=== PATIENT | male | born 1945 | race Caucasian/White ===

== ENCOUNTER 2018-06-12 13:17 | Observation (INO) ==
[2018-06-12] MEDS ORDERED: Sod Chloride 0.9% Inj 1,000 ML IV.SIG ONE (14:27)
[2018-06-12] MEDS ORDERED: Morphine Sulfate Inj 2 MG/ML Vial IV.PUSH ONE (14:27)
--- NOTE | 2018-06-12 14:40 | ED ---
HPI General Chief Complaint: Syncope Stated Complaint: Syncope complaint Time Seen by Provider: 06/12/18 14:09 Source: patient, EMS and RN notes reviewed Mode of arrival: EMS Limitations: no limitations History of Present Illness HPI narrative: 73-year-old male presents to the emergency department via EMS for evaluation of syncope versus seizure. His at bedside states that around [id number] he had 2 episodes where he was sitting in a chair and he became stiff, his eyes rolled back in his head. She states that he did not shake though. He had no fall.. His only history is leg pain. He is complaining of right leg pain at this time, states it has been ongoing for approximately 1-2 months. Current pain is 10/10. He denies any headache. No visual changes. No chest pain or shortness of breath. No abdominal pain. No nausea, vomiting, diarrhea. He states he felt "blurry" before the episode. His states she believes he had a seizure. He is not currently on any prescribed medications. He has been taking Advil [id number] for his leg pain. He denies any trauma to the leg. He states that he feels at his baseline at this time. His at bedside states that the episode lasted a few minutes each time. Moderate severity. MD complaint: Reports loss of consciousness -: minutes(s) Description of event: Reports post-event confusion; Denies tonic-clonic movements, focal shaking, stopped breathing, lost pulse and CPR performed Witnessed: yes - by bystander Context: Reports at rest Injuries sustained associated with event: Reports none Current symptoms: Reports back to baseline History: Denies seizure disorder, previous syncopal episode, seizure disorder, history of CAD, pacemaker and AICD Related Data Home Medications Medication Instructions Recorded Confirmed No Known Home Medications 06/12/18 06/12/18 Allergies Allergy/AdvReac Type Severity Reaction Status Date / Time No Known Allergies Allergy Verified 06/12/18 13:28 Review of Systems ROS: all other systems reviewed are negative [facility] Medical History Medical History Patient denies medical problems (Acute) Surgical History Surgical History No history of previous surgery (Acute) Family History Family History Mother Hypertension Social History Social History Substance History: No History of Abuse Second Hand Smoke Exposure: No Smoking Status: Current every day smoker Tobacco Type: Cigarettes How Often Do You Have a Drink Containing Alcohol: Never Recent Travel in [facility] within the Last 8 Weeks: No Recent Out of Country Travel within the Last 8 Weeks: No Immunization History Tetanus Immunization: Unsure Exam Narrative Exam Narrative: GENERAL: Well-nourished, well-developed male patient, afebrile SKIN: Focused skin assessment warm/dry. No lacerations or abrasions HEAD: Normocephalic. Atraumatic ENT: Mucosa pink and moist. No erythema or exudates. No uvular edema. No uvular , palatal, or tonsillar deviation. Airway patent. Nasal turbinates appear normal without nasal blood, purulent drainage or septal hematoma. Bilateral tympanic membranes clear without erythema or perforation. EYES: No scleral icterus. No injection or drainage. PERRLA. EOM intact NECK: Supple, trachea midline. No JVD or lymphadenopathy. CARDIOVASCULAR: Regular rate and rhythm without murmurs, gallops, or rubs. RESPIRATORY: Breath sounds equal bilaterally. No accessory muscle use. Lung sounds are clear to auscultation GASTROINTESTINAL: Abdomen soft, non-tender, nondistended. MUSCULOSKELETAL: No cyanosis, or edema. Patient reports tenderness of her right posterior calf. No obvious deformity. Bilateral upper and lower extremity strength 5/5. All extremities are neurovascularly intact BACK: Nontender without obvious deformity. No CVA tenderness. NEUROLOGICAL: Awake and alert. Cranial nerves II through XII intact. Motor and sensory grossly within normal limits. Five out of 5 muscle strength in all muscle groups. Normal speech. Finger to nose is normal bilaterally. [id number] is normal bilaterally. Course Initial Documented Vital Signs Temperature 97.6 F 06/12/18 13:28 Pulse Rate 72 06/12/18 13:28 Respiratory Rate 16 06/12/18 13:28 Blood Pressure 112/71 06/12/18 13:28 Pulse Oximetry 100 06/12/18 13:28 Last Documented Vital Signs Temperature 98.2 F 06/13/18 12:00 Pulse Rate 59 L 06/13/18 12:00 Respiratory Rate 16 06/13/18 12:00 Blood Pressure 157/74 H 06/13/18 12:00 Pulse Oximetry 97 06/13/18 12:00 Medical Decision Making MIGUEL Attestation MIGUEL supervised visit: Yes Attestation: No signs of acute airway compromise MDM Narrative Medical decision making narrative: 73-year-old male presents to the emergency department for evaluation of 2 episodes, syncope versus seizure, witnessed by family. His right leg pain that is been ongoing for approximately 1-2 months, otherwise is at his baseline. IV access obtained. EKG shows sinus rhythm, heart rate 63, no acute ST changes. CBC, CMP, magnesium, CK, troponin, PTT, PT/ INR, UA are ordered and pending. Chest x-ray, X-ray of the right tibia/fibula, CT of the head, venous Doppler ultrasound of the right lower extremity is ordered and pending. Patient is given normal saline 1 L IV bolus, morphine 2 mg IV, Zofran 4 mg IV. CBC shows no acute abnormalities. CMP shows no acute abnormality. Magnesium is 2.1. CK is 2.3. Troponin is less than 0.02. PTT is 26.4. PT/INR is 10.5/ 1.0. UA is pending. Chest x-ray shows no acute cardiopulmonary disease. X- ray of the right tibia/fibula shows no acute abnormality; advanced osteoarthritis of the knee. CT of the head shows no acute intracranial abnormality. US shows No DVT; Varicosities in the area of palpable concern. Patient will be admitted for observation for syncope versus seizure. Him and his agree. Medical Screen Exam Complete: Yes Emergency Medical Condition: Yes Differential Diagnosis Differential Diagnosis: Syncope versus seizure versus lectured abnormality versus DVT Medical Records Medical records reviewed: Yes I reviewed the patient's medical records. Lab Data Result diagrams: 06/12/18 15:30 06/12/18 15:30 Lab Results 06/12/18 06/12/18 06/12/18 Range/Units 15:30 15:30 15:30 WBC 9.1 (4.0-11.0) th/mm3 RBC 4.04 L (4.50-5.90) mil/mm3 Hgb 13.9 (13.0-17.0) gm/dL Hct 38.8 L (39.0-51.0) % MCV 96.1 (80.0-100.0) fL MCH 34.4 H (27.0-34.0) pg MCHC 35.8 (32.0-36.0) % RDW 13.9 (11.6-17.2) % Plt Count 192 (150-450) th/mm3 MPV 9.1 (7.0-11.0) fL Neut % (Auto) 83.7 H (16.0-70.0) % Lymph % (Auto) 9.9 (9.0-44.0) % Carroll % (Auto) 5.5 (0.0-8.0) % Eos % (Auto) 0.6 (0.0-4.0) % Baso % (Auto) 0.3 (0.0-2.0) % Neut # (Auto) 7.6 (1.8-7.7) th/mm3 Lymph # (Auto) 0.9 L (1.0-4.8) th/mm3 Carroll # (Auto) 0.5 (0.0-0.9) th/mm3 Eos # (Auto) 0.1 (0.0-0.4) th/mm3 Baso # (Auto) 0.0 (0.0-0.2) th/mm3 WBC Differential . Differential Comment Auto diff final ESR (0-20) mm/hr PT 10.5 (9.8-11.6) sec INR 1.0 Ratio APTT 26.4 (23.4-31.7) sec Sodium 141 (136-145) meq/L Potassium 4.3 (3.5-5.1) meq/L Chloride 109 H (98-107) meq/L Carbon Dioxide 27.7 (21.0-32.0) meq/L Anion Gap 4 L (5-15) meq/L BUN 10 (7-18) mg/dL Creatinine 1.10 (0.60-1.30) mg/dL Estimated GFR 66 L (>89) mL/min Random Glucose 129 H (74-106) mg/dL Calcium 9.1 (8.5-10.1) mg/dL Magnesium 2.1 (1.5-2.5) mg/dL Total Bilirubin 0.2 (0.2-1.0) mg/dL AST 16 (15-37) U/L ALT 30 (12-78) U/L Alkaline Phosphatase 82 (45-117) U/L Total Creatine Kinase 108 (39-308) U/L CK-MB (CK-2) 2.3 (0.5-3.6) ng/mL Troponin I Less than 0.02 L (0.02-0.05) ng/mL C-Reactive Protein (0.00-0.30) mg/dL Total Protein 7.3 (6.4-8.2) g/dL Albumin 3.7 (3.4-5.0) g/dL Triglycerides (42-150) mg/dL Cholesterol (120-200) mg/dL LDL Cholesterol, Calc (0-99) mg/dL HDL Cholesterol (40.0-60.0) mg/dL Cholesterol/HDL Ratio Ratio Vitamin B12 (193-986) pg/mL TSH (0.358-3.740) uIU/mL 06/12/18 06/12/18 06/13/18 Range/Units 15:30 23:03 09:33 WBC (4.0-11.0) th/mm3 RBC (4.50-5.90) mil/mm3 Hgb (13.0-17.0) gm/dL Hct (39.0-51.0) % MCV (80.0-100.0) fL MCH (27.0-34.0) pg MCHC (32.0-36.0) % RDW (11.6-17.2) % Plt Count (150-450) th/mm3 MPV (7.0-11.0) fL Neut % (Auto) (16.0-70.0) % Lymph % (Auto) (9.0-44.0) % Carroll % (Auto) (0.0-8.0) % Eos % (Auto) (0.0-4.0) % Baso % (Auto) (0.0-2.0) % Neut # (Auto) (1.8-7.7) th/mm3 Lymph # (Auto) (1.0-4.8) th/mm3 Carroll # (Auto) (0.0-0.9) th/mm3 Eos # (Auto) (0.0-0.4) th/mm3 Baso # (Auto) (0.0-0.2) th/mm3 WBC Differential Differential Comment ESR 20 (0-20) mm/hr PT (9.8-11.6) sec INR Ratio APTT (23.4-31.7) sec Sodium (136-145) meq/L Potassium (3.5-5.1) meq/L Chloride (98-107) meq/L Carbon Dioxide (21.0-32.0) meq/L Anion Gap (5-15) meq/L BUN (7-18) mg/dL Creatinine (0.60-1.30) mg/dL Estimated GFR (>89) mL/min Random Glucose (74-106) mg/dL Calcium (8.5-10.1) mg/dL Magnesium (1.5-2.5) mg/dL Total Bilirubin (0.2-1.0) mg/dL AST (15-37) U/L ALT (12-78) U/L Alkaline Phosphatase (45-117) U/L Total Creatine Kinase Cancelled (39-308) U/L CK-MB (CK-2) (0.5-3.6) ng/mL Troponin I Less than 0.02 L (0.02-0.05) ng/mL C-Reactive Protein (0.00-0.30) mg/dL Total Protein (6.4-8.2) g/dL Albumin (3.4-5.0) g/dL Triglycerides (42-150) mg/dL Cholesterol (120-200) mg/dL LDL Cholesterol, Calc (0-99) mg/dL HDL Cholesterol (40.0-60.0) mg/dL Cholesterol/HDL Ratio Ratio Vitamin B12 (193-986) pg/mL TSH (0.358-3.740) uIU/mL 06/13/18 Range/Units 09:33 WBC (4.0-11.0) th/mm3 RBC (4.50-5.90) mil/mm3 Hgb (13.0-17.0) gm/dL Hct (39.0-51.0) % MCV (80.0-100.0) fL MCH (27.0-34.0) pg MCHC (32.0-36.0) % RDW (11.6-17.2) % Plt Count (150-450) th/mm3 MPV (7.0-11.0) fL Neut % (Auto) (16.0-70.0) % Lymph % (Auto) (9.0-44.0) % Carroll % (Auto) (0.0-8.0) % Eos % (Auto) (0.0-4.0) % Baso % (Auto) (0.0-2.0) % Neut # (Auto) (1.8-7.7) th/mm3 Lymph # (Auto) (1.0-4.8) th/mm3 Carroll # (Auto) (0.0-0.9) th/mm3 Eos # (Auto) (0.0-0.4) th/mm3 Baso # (Auto) (0.0-0.2) th/mm3 WBC Differential Differential Comment ESR (0-20) mm/hr PT (9.8-11.6) sec INR Ratio APTT (23.4-31.7) sec Sodium (136-145) meq/L Potassium (3.5-5.1) meq/L Chloride (98-107) meq/L Carbon Dioxide (21.0-32.0) meq/L Anion Gap (5-15) meq/L BUN (7-18) mg/dL Creatinine (0.60-1.30) mg/dL Estimated GFR (>89) mL/min Random Glucose (74-106) mg/dL Calcium (8.5-10.1) mg/dL Magnesium (1.5-2.5) mg/dL Total Bilirubin (0.2-1.0) mg/dL AST (15-37) U/L ALT (12-78) U/L Alkaline Phosphatase (45-117) U/L Total Creatine Kinase (39-308) U/L CK-MB (CK-2) (0.5-3.6) ng/mL Troponin I (0.02-0.05) ng/mL C-Reactive Protein 0.44 H (0.00-0.30) mg/dL Total Protein (6.4-8.2) g/dL Albumin (3.4-5.0) g/dL Triglycerides 183 H (42-150) mg/dL Cholesterol 214 H (120-200) mg/dL LDL Cholesterol, Calc 139 H (0-99) mg/dL HDL Cholesterol 38.1 L (40.0-60.0) mg/dL Cholesterol/HDL Ratio 5.61 Ratio Vitamin B12 193 (193-986) pg/mL TSH 1.580 (0.358-3.740) uIU/mL Imaging Data Radiologist's impression: Carotid Doppler Study 06/12/18 00:00 CONCLUSION: No evidence of flow-limiting carotid stenosis. Chest X-Ray 06/12/18 14:27 CONCLUSION: 1. No acute cardiopulmonary disease. Head CT 06/12/18 14:27 CONCLUSION: 1. No acute intracranial abnormality. . Tibia/Fibula X-Ray 06/12/18 14:27 CONCLUSION: No acute abnormality. Advanced osteoarthritis of the knee. Venous Doppler Study 06/12/18 14:27 CONCLUSION: 1. No DVT. 2. Varicosities in the area of palpable concern. Head MRI 06/13/18 00:00 CONCLUSION: 1. Single small area of restricted diffusion seen along the floor of the right frontal lobe. However, the FLAIR images at this level are normal. Therefore, this may be an artifact versus a small infarct. 2. Otherwise, unremarkable examination for patient's age. Head MRA 06/13/18 08:57 CONCLUSION: 1. Unremarkable MRA of the brain. Discharge Plan Discharge Disposition Patient Disposition: ED Admit(ED Internal Use Only) Discharge Order Discharge Orders: Cardiology Clear for Discharge (Routine); Ordered 06/13/18 Ordered By: Luis Enrique Rogers ED Use Only Admit Order (Routine); Ordered 06/12/18 Ordered By: Shellie Norris Discharge Details Diagnosis: Syncope Physicians Team ED Provider: Marshall Skaggs ED Midlevel Provider: Shellie Norris Primary Care Provider: Jon Banks Attending Provider: Ruperto Velasco Other Providers: Jay Burton ; Rc,Rc ; Luis Enrique Rogers Status ED Status: Left Department Discharge Information Discharge Date/Time: 06/12/18 18:55
--- NOTE | 2018-06-12 14:46 | XR ---
EXAM DATE: 06/12/2018 2:44 PM EST AGE/SEX: 73 years / Male INDICATIONS: Shortness of breath. CLINICAL DATA: This is the patient's initial encounter. Patient reports that signs and symptoms have been present for 1 day and indicates a pain score of 0/10. MEDICAL/SURGICAL HISTORY: None. None. COMPARISON: No prior exams available for comparison. FINDINGS: A single AP view of the chest demonstrates the lungs to be symmetrically aerated without evidence of mass, infiltrate or effusion. The cardiomediastinal contours are unremarkable. Osseous structures a re intact. CONCLUSION: 1. No acute cardiopulmonary disease. Electronically signed by: Brendon Lange MD Board Certified Radiologist 06/12/2018 2:45 PM EST
--- NOTE | 2018-06-12 14:50 | XR ---
EXAM DATE: 06/12/2018 2:44 PM EST AGE/SEX: 73 years / Male INDICATIONS: Right tibia/fibula lateral side pain and swelling, no known injury. CLINICAL DATA: This is the patient's initial encounter. Patient reports that signs and symptoms have been present for 1 day and indicates a pain score of 10/10. MEDICAL/SURGICAL HISTORY: None. None. COMPARISON: No prior exams available for comparison. FINDINGS: Bony structures are intact and in normal alignment. Osseous density is normal. Soft tissues are unre markable. No radiopaque foreign bodies seen. Advanced osteoarthritis involving the knee joint. Calci fications within the popliteal fossa presumably relating to atherosclerotic calcifications. CONCLUSION: No acute abnormality. Advanced osteoarthritis of the knee. Electronically signed by: Ricardo Smith MD Board Certified Radiologist 06/12/2018 2:49 PM EST
--- NOTE | 2018-06-12 15:04 | CT ---
EXAM DATE: 06/12/2018 3:00 PM EST AGE/SEX: 73 years / Male INDICATIONS: Syncope. Right leg pain. CLINICAL DATA: This is the patient's initial encounter. Patient reports that signs and symptoms have been present for 1 day and indicates a pain score of 10/10. MEDICAL/SURGICAL HISTORY: None. None. RADIATION DOSE: 37.47 CTDI (mGy) COMPARISON: No prior exams available for comparison. TECHNIQUE: CT of the head without contrast. Using automated exposure control and adjustment of the mA and/or kV according to patient size, radiation dose was kept as low as reasonably achievable to ob tain optimal diagnostic quality images. DICOM format image data is available electronically for revi ew and comparison. FINDINGS: Cerebrum: Mild diffuse cerebral atrophy. The ventricles are normal for age. No evidence of midline s hift, mass lesion, hemorrhage or acute infarction. No extraaxial fluid collections are seen. Posterior Fossa: The cerebellum and brainstem are intact. The 4th ventricle is midline. The cerebe llopontine angle is unremarkable. Extracranial: The visualized portion of the orbits is intact. Skull: The calvaria is intact. No evidence of skull fracture. CONCLUSION: 1. No acute intracranial abnormality. . Electronically signed by: Brendon Lange MD Board Certified Radiologist 06/12/2018 3:02 PM EST
[2018-06-12 15:57] LABS: Baso % (Auto) 0.3 % (0.0-2.0); Eos # (Auto) 0.1 th/mm3 (0.0-0.4); Eos % (Auto) 0.6 % (0.0-4.0); Hematocrit 38.8 % (39.0-51.0); Hemoglobin 13.9 gm/dL (13.0-17.0); Lymph # (Auto) 0.9 th/mm3 (1.0-4.8); Lymph % (Auto) 9.9 % (9.0-44.0); Mean Corpuscular HGB Conc 35.8 % (32.0-36.0); Mean Corpuscular Hemoglobin 34.4 pg (27.0-34.0); Mean Corpuscular Volume 96.1 fL (80.0-100.0); Mean Platelet Volume 9.1 fL (7.0-11.0); Mono # (Auto) 0.5 th/mm3 (0.0-0.9); Mono % (Auto) 5.5 % (0.0-8.0); Neut # (Auto) 7.6 th/mm3 (1.8-7.7); Neut % (Auto) 83.7 % (16.0-70.0); Platelet Count 192 th/mm3 (150-450); Red Blood Count 4.04 mil/mm3 (4.50-5.90); Red Cell Distribution Width 13.9 % (11.6-17.2); White Blood Count 9.1 th/mm3 (4.0-11.0)
--- NOTE | 2018-06-12 15:58 | US ---
EXAM DATE: 06/12/2018 3:52 PM EST AGE/SEX: 73 years / Male INDICATIONS: Right lateral calf leg pain. CLINICAL DATA: This is the patient's initial encounter. Patient reports that signs and symptoms have been present for 2 days and indicates a pain score of 10/10. MEDICAL/SURGICAL HISTORY: . Right leg pain. None. COMPARISON: No prior exams available for comparison. TECHNIQUE: Venous ultrasound of both lower extremities was performed from the inguinal ligament to t he proximal calf. Real-time, color Doppler and spectral tracing, compression and augmentation techni ques were used. FINDINGS: Normal compression of the deep venous system from the inguinal region to the proximal calf . No echogenic clot is seen. Normal response of the venous system to augmentation and respiration. The area of palpable concern within the lateral calf relates to varicosities. These are not thrombose d. CONCLUSION: 1. No DVT. 2. Varicosities in the area of palpable concern. Electronically signed by: Ricardo Smith MD Board Certified Radiologist 06/12/2018 3:57 PM EST
[2018-06-12 16:05] LABS: Alanine Aminotransferase 30 U/L (12-78); Albumin 3.7 g/dL (3.4-5.0); Anion Gap 4 meq/L (5-15); Aspartate Aminotransferase 16 U/L (15-37); Blood Urea Nitrogen 10 mg/dL (7-18); Calcium 9.1 mg/dL (8.5-10.1); Carbon Dioxide 27.7 meq/L (21.0-32.0); Chloride 109 meq/L (98-107); Glomerular Filtration Rate 66 mL/min (>89); Glucose,Random 129 mg/dL (74-106); Magnesium 2.1 mg/dL (1.5-2.5); Potassium 4.3 meq/L (3.5-5.1); Sodium 141 meq/L (136-145)
[2018-06-12 16:09] LABS: Alkaline Phosphatase 82 U/L (45-117); Creatine Kinase 108 U/L (39-308); Total Protein 7.3 g/dL (6.4-8.2)
[2018-06-12 16:10] LABS: Activated Partial Thrombo Time 26.4 sec (23.4-31.7); Prothrombin Time 10.5 sec (9.8-11.6)
[2018-06-12 16:21] LABS: Creatine Kinase MB 2.3 ng/mL (0.5-3.6)
--- NOTE | 2018-06-12 17:51 | P.HPIM ---
History of Present Illness Service: Hospitalist Primary Care Physician: Jon Banks MD Chief Complaint: "I passed out" History of Present Illness: This is a 73-year-old [place] male patient without any significant past medical history who presents to [facility] ED with complaints of possible syncopal versus seizure episode. History is obtained from discussion with the patient and who is at the bedside as well as review of electronic medical record. 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 He then walked out to the porch and sat down and became unresponsive as witnessed by the . Patients states that his eyes rolled towards the back of his head and he would not respond to her. She denies any involuntary shaking. She says that he began to breathe very hard and became diaphoretic. She says that she blew air into his mouth and after a few minutes he regained consciousness. Patient states that prior to the episode he did not have any headache, chest pain, palpitations, weakness, numbness, tingling or chest pain. Patient did not bite his tongue but he was incontinent of urine. Patient denies any fall. He denies any recent head injury. says that she did not witness any facial droop or slurred speech. EMS was called and patient was found to have normal blood pressure and heart rate. Approximately 10 minutes after EMS left, patient had a similar episode that lasted a few minutes and prompted them to come into the hospital. Patient denies any history of seizure disorder. He denies any cardiac history. He does not take any prescribed medications. He does report complaints of chronic pain in the left heel and right medial lower leg that has been ongoing for quite some time. He denies any aggravating or alleviating factors in regards to the pain in the left heel but does state that ambulation improves pain in the right leg. He takes Advil 2-3 times per week with mild improvement. Patient denies any recent illness or sick contacts. At present, he does not have any medical complaints. He denies any fever or chills. He denies any headache, vision changes, blurry vision, numbness/tingling, weakness , chest pain, shortness of breath, nausea, vomiting or abdominal pain. He denies any urinary difficulties, hematuria or dysuria. He denies any diarrhea or constipation. He says he feels like he is at his baseline. In the ED, head CT shows no acute intracranial process. Laboratory studies are overall unremarkable. Initial troponin is less than 0.02. Review of Systems Review of Systems: all other systems reviewed are negative [facility] Medical History Medical History Patient denies medical problems (Acute) Surgical History Surgical History No history of previous surgery (Acute) Family History Family History Mother Hypertension Social History Social History Substance History: No History of Abuse Second Hand Smoke Exposure: Yes Smoking Status: Current every day smoker Tobacco Type: Cigarettes How Often Do You Have a Drink Containing Alcohol: Never Recent Travel in [facility] within the Last 8 Weeks: No Recent Out of Country Travel within the Last 8 Weeks: No Immunization History Tetanus Immunization: Unsure Medications and Allergies Allergies Allergy/AdvReac Type Severity Reaction Status Date / Time No Known Allergies Allergy Verified 06/12/18 13:28 Home Medications Medication Instructions Recorded Confirmed Type No Known Home Medications 06/12/18 06/12/18 History Physical Exam Vital signs: Vital Signs 06/12/18 13:28 Temperature 97.6 F Pulse Rate 72 Respiratory Rate 16 Blood Pressure 112/71 Pulse Oximetry 100 Intake & Output 06/11/18 06/12/18 06/12/18 18:59 06:59 18:59 Weight 61.235 kg Narrative: GENERAL: WDWN elderly [place] male patient, INAD. Awake and alert. is at the bedside. SKIN: Warm and dry. +hyperpigmentation changes noted over right lateral medial calf, chronic per patient. HEAD: Atraumatic. Normocephalic. EYES: Pupils equal and round. No scleral icterus. No injection or drainage. ENT: No nasal bleeding or discharge. Mucous membranes pink and moist. Tongue midline. NECK: Trachea midline. No JVD. CARDIOVASCULAR: Bradycardic. No murmur appreciated. RESPIRATORY: No accessory muscle use. Clear to auscultation. Breath sounds equal bilaterally. GASTROINTESTINAL: Abdomen soft, non-tender, nondistended. Hepatic and splenic margins not palpable. MUSCULOSKELETAL: Extremities without clubbing, cyanosis, or edema. No obvious deformities. Bilateral feet cool, pulses difficult to palpate, loss of hair distally. NEUROLOGICAL: Awake and alert. No obvious cranial nerve deficits. Motor grossly within normal limits. Able to move all extremities spontaneously. Normal speech. PSYCHIATRIC: Appropriate mood and affect; insight and judgment normal. Results Labs CBC & Chem 7: 06/12/18 15:30 06/12/18 15:30 Imaging Impressions Chest X-Ray 06/12/18 14:27 CONCLUSION: 1. No acute cardiopulmonary disease. Head CT 06/12/18 14:27 CONCLUSION: 1. No acute intracranial abnormality. . Tibia/Fibula X-Ray 06/12/18 14:27 CONCLUSION: No acute abnormality. Advanced osteoarthritis of the knee. Venous Doppler Study 06/12/18 14:27 CONCLUSION: 1. No DVT. 2. Varicosities in the area of palpable concern. Caprini VTE Risk Assessment Caprini VTE Risk Assessment: No/Low Risk (score <= 1) Caprini Risk Assessment Model: Point Value = 1 Point Value = 2 Point Value = 3 Point Value = 5 Age 41-60 Minor surgery BMI > 25 kg/m2 Swollen legs Varicose veins or History of unexplained or recurrent spontaneous Oral contraceptives or hormone replacement Sepsis (< 1 month) Serious lung disease, including pneumonia (< 1 month) Abnormal pulmonary function Acute myocardial infarction Congestive heart failure (< 1 month) History of inflammatory bowel disease Medical patient at bed rest Age 61-74 Arthroscopic surgery Major open surgery (> 45 min) Laparoscopic surgery (> 45 min) Malignancy Confined to bed (> 72 hours) Immobilizing plaster cast Central venous access Age >= 75 History of VTE Family history of VTE Factor V Leiden Prothrombin [id number] Lupus anticoagulant Anticardiolipin antibodies Elevated serum homocysteine Heparin-induced thrombocytopenia Other congenital or acquired thrombophilia Stroke (< 1 month) Elective arthroplasty Hip, pelvis, or leg fracture Acute spinal cord injury (< 1 month) Prophylaxis Regimen: Total Risk Factor Score Risk Level Prophylaxis Regimen 0-1 Low Early ambulation 2 Moderate Order ONE of the following: *Sequential Compression Device (SCD) *Heparin 5000 units SQ BID 3-4 Higher Order ONE of the following medications: *Heparin 5000 units SQ TID *Enoxaparin/Lovenox 40 mg SQ daily (WT < 150 kg, CrCl > 30 mL/min) *Enoxaparin/Lovenox 30 mg SQ daily (WT < 150 kg, CrCl > 10-29 mL/min) *Enoxaparin/Lovenox 30 mg SQ BID (WT < 150 kg, CrCl > 30 mL/min) AND/OR *Sequential Compression Device (SCD) 5 or more Highest Order ONE of the following medications: *Heparin 5000 units SQ TID (Preferred with Epidurals) *Enoxaparin/Lovenox 40 mg SQ daily (WT < 150 kg, CrCl > 30 mL/min) *Enoxaparin/Lovenox 30 mg SQ daily (WT < 150 kg, CrCl > 10-29 mL/min) *Enoxaparin/Lovenox 30 mg SQ BID (WT < 150 kg, CrCl > 30 mL/min) AND *Sequential Compression Device (SCD) Assessment and Plan Plan 73yo male without any significant PMHX admitted for evaluation of syncopal vs seizure episode: Possible seizure vs syncope: Patient denies any significant past medical history including cardiac history or seizure disorder. s/p 2 episodes of blurred vision and dizziness followed by unresponsiveness, labored breathing and diaphoresis with urinary incontinence CT head unremarkable Initial troponin <0.02 EKG show NSR Mag level 2.1 follow up on UA -Consult Neurology, appreciate assistance -Obtain EEG -Obtain 2D echocardiogram and carotid doppler -trend cardiac enzymes -check TSH level and HgbA1c -check orthostatic BP measurements -neuro checks -Consider Cardiology consultation -monitor on cardiac telemetry -seizure and fall precautions Left heel/foot pain, chronic Right lower leg and foot pain, chronic Doppler neg for DVT RLE -poor pulses and cool feet on exam -will obtain JOSÉ studies DVT prophylaxis -bilateral SCD/RALPH hose Code Status: FULL Discussed Condition With: patient, , Dr. Bentley Attending Attestation The exam, history, and the medical decision-making described in the above note were completed with the assistance of the mid-level provider Sofya Regan. I reviewed and agree with the findings presented. I attest that I had a face-to -face encounter with the patient on the same day, and personally performed and documented my assessment and findings in the medical record. Patient seen and examined. He reports a brief episode of loss of consciousness. Witnessed by his . On exam, heart with normal S1, S2. No significant heart murmurs. Lungs are clear to auscultation bilaterally. Abdomen is soft. No lower extremity edema. Patient with syncope versus seizure. Complete syncope workup as documented above. Monitor on telemetry. EEG to rule out seizure. Neurology consulted. JOSÉ for chronic foot pain.
[2018-06-12] MEDS ORDERED: Acetaminophen 325 MG Tablet PO PRN (20:58)
--- NOTE | 2018-06-12 23:27 | US ---
EXAM DATE: 06/12/2018 11:16 PM EST AGE/SEX: 73 years / Male INDICATIONS: Syncope vs seizure. Dizziness and blurred vision. CLINICAL DATA: This is the patient's initial encounter. Patient reports that signs and symptoms have been present for 1 day and indicates a pain score of 0/10. MEDICAL/SURGICAL HISTORY: . Patient denies any medical history. None. COMPARISON: No prior exams available for comparison. VELOCITY PARAMETERS: ICA/CCA Ratio: Right 1.1 , Left 1.0 ICA: Right 127 cm/sec, Left 104 cm/sec CCA: Right 117 cm/sec, Left 102 cm/sec ECA: Right 101 cm/sec, Left 101 cm/sec Vertebral: Right 74 cm/sec antegrade, Left 84 cm/sec antegrade FINDINGS: Right Carotid: Mild arteriosclerotic plaque is visualized.The waveforms are within normal limits. Left Carotid: Mild arteriosclerotic plaque is visualized. The waveforms are within normal limits. Other: None. CONCLUSION: No evidence of flow-limiting carotid stenosis. Electronically signed by: Nemesio Pitts MD Board Certified Radiologist 06/12/2018 11:26 PM EST
[2018-06-13 03:09] VITALS: RESP 16
--- NOTE | 2018-06-13 08:57 | P.CONNEU ---
History of Present Illness Service: Neurology Primary Care Provider: Jon Banks MD Chief Complaint: "I passed out" History of Present Illness: 73-year-old male was doing some work instillation of shower he states his right leg felt a little weak went down felt dizzy apparently passed out for a couple minutes. came to see him no tonic-clonic activity no bowel bladder incontinence. States she got EVAC patient felt better and did not want go to the hospital for further care however had another episode where he felt lightheaded and passed out transiently. X-ray of the right tibia/fibula shows no acute abnormality; advanced osteoarthritis of the knee. CT of the head shows no acute intracranial abnormality. Vitals normal normal blood pressure in the ER. No significant electrolyte abnormalities. He is otherwise healthy no cardiac or neurologic history no history of A. fib TIA stroke or seizure. No known known history of cardiac arrhythmia. He has a history of chronic discomfort cramp sensation in his right leg as well as his left foot ongoing for the past 4 years. States he is related to his primary care physician's in addition has seen center director. Denies any numbness tingling or burning sensation. Denies any spinal pain or any radicular symptomatology. Review of Systems All other systems reviewed negative except as stated in HPI PMFSH - History History Provided By: Patient - Medical History Medical History: Medical History (Last Reviewed 06/12/18 @ 17:33 by Shereen Cowart) Patient denies medical problems - Surgical History Surgical History: Surgical History (Last Reviewed 06/12/18 @ 17:34 by Shereen Cowart) No history of previous surgery - Family History Family History: Family History (Last Reviewed 06/12/18 @ 17:34 by Shereen Cowart) Mother Hypertension - Tobacco History Second Hand Smoke Exposure: No Tobacco Use In Past 30 Days: Yes Smoking Status: Current every day smoker Tobacco Type: Cigarettes - Alcohol History How Often Do You Have a Drink Containing Alcohol: Never - Substance Use History Substance History: No History of Abuse - Travel History Recent Travel in the [place] Within the Last 8 Weeks: No Recent Travel Out of the Country Within the Last 8 Weeks: No - Immunization History Tetanus Immunization: Unsure Medications and Allergies Active Medications: Active Medications Acetaminophen (Tylenol) 650 mg PO Q4H PRN PRN Reason: PAIN 1-10 AND/OR FEVER >101F Last Admin: 06/12/18 21:21 Dose: 650 mg Allergies Allergy/AdvReac Type Severity Reaction Status Date / Time No Known Allergies Allergy Verified 06/12/18 13:28 Home Medications Medication Instructions Recorded Confirmed Type No Known Home Medications 06/12/18 06/12/18 History Exam Vital signs: Vital Signs 06/12/18 13:28 06/12/18 17:35 06/12/18 17:55 Temperature 97.6 F Pulse Rate 72 59 L 66 Respiratory Rate 16 20 18 Blood Pressure 112/71 149/65 H Pulse Oximetry 100 99 98 06/12/18 19:30 06/12/18 22:00 06/12/18 22:40 Temperature 98.2 F Pulse Rate 73 63 Respiratory Rate 16 16 Blood Pressure 109/65 Pulse Oximetry 96 06/12/18 23:45 06/13/18 00:20 06/13/18 03:08 Temperature 98.3 F 98 F Pulse Rate 60 60 66 Respiratory Rate 12 16 Blood Pressure 131/69 130/63 Pulse Oximetry 97 98 Intake & Output 06/12/18 06/13/18 06/13/18 18:59 06:59 18:59 Intake Total 1000 / 1000 480 / 480 Balance 1000 / 1000 480 / 480 Weight 61.235 kg Intake: IV 1000 / 1000 NS Inj 1,000 ML @ Wide Open IV. 1000 / 1000 SIG BOLUS ONE Rx#:[id number] Oral 480 / 480 Other: # Voids 2 Date of Last Bowel Movement 06/12/18 Narrative: GENERAL: in NAD, SKIN: Warm and dry. HEAD: Atraumatic. Normocephalic. EYES: Pupils equal and round. ENT: No nasal bleeding or discharge. NECK: Trachea midline. CARDIOVASCULAR: Regular rate and rhythm. RESPIRATORY: No accessory muscle use. GASTROINTESTINAL: Abdomen soft, non-tender, nondistended. MUSCULOSKELETAL: Extremities without clubbing, cyanosis, or edema. NEUROLOGICAL: Awake and alert. No aphasia, fluent articulate, No facial asymmetry, OU 3-2mm, eomi, VFF, No drift, Motor grossly within normal limits. Five out of 5 muscle strength in the arms and legs. 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 - Constitutional no acute distress - Routine HEENT Exam Head: Present: normocephalic Eye: Present: EOMI Results - Labs CBC & Chem 7: 06/12/18 15:30 06/12/18 15:30 Labs: Laboratory Results - last 24 hr 06/12/18 06/12/18 06/12/18 15:30 15:30 15:30 WBC 9.1 RBC 4.04 L Hgb 13.9 Hct 38.8 L MCV 96.1 MCH 34.4 H MCHC 35.8 RDW 13.9 Plt Count 192 MPV 9.1 Neut % (Auto) 83.7 H Lymph % (Auto) 9.9 Webb % (Auto) 5.5 Eos % (Auto) 0.6 Baso % (Auto) 0.3 Neut # (Auto) 7.6 Lymph # (Auto) 0.9 L Webb # (Auto) 0.5 Eos # (Auto) 0.1 Baso # (Auto) 0.0 WBC Differential . Differential Comment Auto diff final PT 10.5 INR 1.0 APTT 26.4 Sodium 141 Potassium 4.3 Chloride 109 H Carbon Dioxide 27.7 Anion Gap 4 L BUN 10 Creatinine 1.10 Estimated GFR 66 L Random Glucose 129 H Calcium 9.1 Magnesium 2.1 Total Bilirubin 0.2 AST 16 ALT 30 Alkaline Phosphatase 82 Total Creatine Kinase 108 CK-MB (CK-2) 2.3 Troponin I Less than 0.02 L Total Protein 7.3 Albumin 3.7 06/12/18 06/12/18 15:30 23:03 WBC RBC Hgb Hct MCV MCH MCHC RDW Plt Count MPV Neut % (Auto) Lymph % (Auto) Webb % (Auto) Eos % (Auto) Baso % (Auto) Neut # (Auto) Lymph # (Auto) Webb # (Auto) Eos # (Auto) Baso # (Auto) WBC Differential Differential Comment PT INR APTT Sodium Potassium Chloride Carbon Dioxide Anion Gap BUN Creatinine Estimated GFR Random Glucose Calcium Magnesium Total Bilirubin AST ALT Alkaline Phosphatase Total Creatine Kinase Cancelled CK-MB (CK-2) Troponin I Less than 0.02 L Total Protein Albumin - Imaging Impressions Carotid Doppler Study 06/12/18 00:00 CONCLUSION: No evidence of flow-limiting carotid stenosis. Chest X-Ray 06/12/18 14:27 CONCLUSION: 1. No acute cardiopulmonary disease. Head CT 06/12/18 14:27 CONCLUSION: 1. No acute intracranial abnormality. . Tibia/Fibula X-Ray 06/12/18 14:27 CONCLUSION: No acute abnormality. Advanced osteoarthritis of the knee. Venous Doppler Study 06/12/18 14:27 CONCLUSION: 1. No DVT. 2. Varicosities in the area of palpable concern. Review/Management - Diagnosis (1) Syncope Code(s): R55 - Syncope and collapse Status: Acute Current Visit: Yes - Review/Management Plan: Recurrent syncopal type episode Etiology would include cardiac arrhythmia, valvular disease, seizure, dehydration orthostatic CT brain negative. Carotid ultrasound negative Recommendation MRI MRA brain Telemetry Would suggest cardiac evaluation EEG Orthostatics Follow exam Chronic lower extremity discomfort can be further evaluated in the outpatient setting (1) Syncope Qualifiers: Syncope type: unspecified Qualified Code(s): R55 - Syncope and collapse
[2018-06-13 09:29] VITALS: O2SAT 97
[2018-06-13 10:44] LABS: C-Reactive Protein 0.44 mg/dL (0.00-0.30)
--- NOTE | 2018-06-13 11:02 | MB ---
cc: Luis Enrique Rogers MD DATE: 06/13/2018 REASON FOR CONSULTATION: Syncope. HISTORY OF PRESENT ILLNESS: The patient is a 73-year-old [place] male with no major past medical history, who was in his usual state of health up until yesterday afternoon when, after doing some work on a shower, he felt some discomfort in his right leg causing him to bend down to the ground. When he stood up, he did not feel well and went to sit down. He then began to feel lightheaded to the point of losing consciousness, he believes for 1.5 to 2 minutes. He denies any preceding headache, nausea, chest pain or shortness of breath, but his did find him very diaphoretic. When he regained consciousness, there was no disorientation. There was also no bowel or urinary incontinence or seizure activity. Emergency services were called and he initially declined going to the hospital. Shortly after the ambulance left, while sitting, he once again developed lightheadedness, losing consciousness for about another minute. He was once again diaphoretic without nausea or clamminess. The patient denies any other episodes of syncope in the past. He also denies dyspnea on exertion, pedal edema, paroxysmal nocturnal dyspnea, palpitations, recent flu symptoms. His oral intake has been good. The patient notes at least a 2-3 month history of right lower extremity pain below the knee, which seems to migrate to different regions on his leg, described as "pinchy" feeling. Venous Doppler of the leg has shown no evidence for deep venous thrombosis. PAST MEDICAL HISTORY: None. PAST SURGICAL HISTORY: None. MEDICATIONS AT HOME: None. ALLERGIES: NO KNOWN DRUG ALLERGIES. FAMILY HISTORY: Noncontributory. SOCIAL HISTORY: The patient smokes a little less than a pack of cigarettes per day. He denies alcohol abuse. REVIEW OF SYSTEMS: As in history of present illness, otherwise negative or noncontributory. He also denies abdominal pain, melena, dyspepsia, bright red blood per rectum, diarrhea. PHYSICAL EXAMINATION: VITAL SIGNS: Blood pressure 160/70 with a pulse of 62, respirations 16. GENERAL: He is a well-developed, well-nourished [place] male in no acute distress. NECK: Jugular venous pressure is normal. Carotid pulses are 2+ bilaterally and without bruits. CHEST: Reveals clear lungs quintero. CARDIAC: He has a regular rhythm and rate without S3, S4, or murmur. ABDOMEN: He has a soft, nontender abdomen. Bowel sounds are present. There is no definite hepatosplenomegaly. EXTREMITIES: Reveals no clubbing, cyanosis or edema. DIAGNOSTIC STUDIES: EKG shows normal sinus rhythm, normal EKG. Chest x-ray shows no acute disease. LABORATORY DATA: Includes normal CBC. Potassium 4.3, BUN 10, creatinine 1.10. Negative cardiac enzymes. IMPRESSION: Two syncopal episodes yesterday in a 73-year-old [place] male with no major past medical history. Overall, I suspect the patient had vasovagal-mediated events. He was diaphoretic with a sense of generalized malaise at the time of his initial loss of consciousness. So far on monitoring, he has had no arrhythmias. He is on no AV daya suppressing drugs. Echocardiogram is pending. The patient denies any other episodes of syncope in the past. The patient has no major risk factors for coronary disease except for tobacco abuse. RECOMMENDATIONS: 1. Await his 2-D echo. 2. If his echo is unremarkable and he is clinically stable, he can be discharged home this afternoon from a cardiac standpoint. 3. Should he have recurrent unexplained syncope in the future, would recommend placement of an implantable loop recorder. MD SHERINE Collado/jesús , 10:27 AM , 10:37 AM CÉSAR
[2018-06-13 11:09] LABS: Chol/HDL Ratio 5.61 Ratio; HDL Cholesterol 38.1 mg/dL (40.0-60.0); Thyroid Stimulating Hormone 1.58 uIU/mL (0.358-3.740)
--- NOTE | 2018-06-13 12:52 | MR ---
EXAM DATE: 06/13/2018 12:46 PM EST AGE/SEX: 73 years / Male INDICATIONS: . Syncope. CLINICAL DATA: This is the patient's initial encounter. Patient reports that signs and symptoms have been present for 1 day and indicates a pain score of 0/10. MEDICAL/SURGICAL HISTORY: None. None. COMPARISON: [facility] [place], CT HEAD W/O CONTRAST, 06/12/2018. . TECHNIQUE: Multiplanar, multisequence examination of the brain was performed without contrast. FINDINGS: Cerebrum: The ventricles are normal for age. No evidence of midline shift, mass lesion, hemorrhage. Questional small area of restricted diffusion along the base the right frontal lobe. This is not con firmed on the FLAIR images therefore this could be artifact. No extraaxial fluid collections are seen . The pituitary gland and suprasellar cistern are normal in configuration. White Matter: No significant signal abnormalities are seen in the white matter. Mild chronic white m atter changes are noted bilaterally consistent with patient's age. Posterior Fossa: The cerebellum and brainstem are intact. The 4th ventricle is midline. The cerebel lopontine angle is unremarkable. The cerebellar tonsils are normal in position. Diffusion Imaging: No focal areas of restricted diffusion are seen. No evidence of acute infarction . Extracranial: The visualized portions of the orbits and paranasal sinuses are unremarkable. CONCLUSION: 1. Single small area of restricted diffusion seen along the floor of the right frontal lobe. However , the FLAIR images at this level are normal. Therefore, this may be an artifact versus a small infarc t. 2. Otherwise, unremarkable examination for patient's age. Electronically signed by: Andrae Chaidez MD Board Certified Radiologist 06/13/2018 12:50 PM EST
--- NOTE | 2018-06-13 12:52 | MR ---
EXAM DATE: 06/13/2018 12:45 PM EST AGE/SEX: 73 years / Male INDICATIONS: . Syncope. CLINICAL DATA: This is the patient's initial encounter. Patient reports that signs and symptoms have been present for 1 day and indicates a pain score of 0/10. MEDICAL/SURGICAL HISTORY: None. None. COMPARISON: [facility] [place], [place] HEAD W/O CONTRAST, 06/13/2018. . TECHNIQUE: 3D [id number] MRA was performed. Source images, multiplanar STS MIP, and 3D volum e MIP reconstructions were reviewed. FINDINGS: There is excellent visualization of the major intracranial arteries out to the second-order branch ve ssels. There is no evidence for aneurysm, vessel truncation or stenosis, and no evidence for vascula r malformation. 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 There is a patent right posterior communicati ng artery. CONCLUSION: 1. Unremarkable MRA of the brain. Electronically signed by: Andrae Chaidez MD Board Certified Radiologist 06/13/2018 12:51 PM EST
--- NOTE | 2018-06-13 13:06 | ECHRPT ---
Indication: SYNCOPE CONCLUSIONS Normal left ventricular size. Wall thickness is normal. Left ventricular systolic function is anne-marie l with an estimated ejection fraction in the range of 60-65%. Normal wall motion. Trace mitral valve regurgitation. Trace tricuspid regurgitation. The estimated pulmonary arterial pressure is 24 mmHg. BP: / HR: Rhythm: Technical Quality: FINDINGS LEFT VENTRICLE Normal left ventricular size. Wall thickness is normal. The left ventricular systolic function is normal with an estimated ejection fraction in the range of 60-65%. No regional wall motion abnormalities are present. RIGHT VENTRICLE Normal right ventricular size and systolic function. LEFT ATRIUM The left atrial size is normal. RIGHT ATRIUM The right atrial size is normal. ATRIAL SEPTUM Normal atrial septal thickness without atrial level shunting by limited color doppler interrogation. AORTA The aortic root and proximal ascending aorta are normal in size on limited imaging. MITRAL VALVE Trace mitral valve regurgitation. AORTIC VALVE Trileaflet aortic valve. No aortic valve stenosis or regurgitation. TRICUSPID VALVE The estimated pulmonary arterial pressure is 24 mmHg. There is trace tricuspid valve regurgitation. PULMONARY VALVE The pulmonary valve is not well visualized. VESSELS The inferior vena cava is normal in size. PERICARDIUM No pericardial effusion. Luis Enrique Rogers MD (Electronically Signed) Final Date:13 June 2018 13:05
--- NOTE | 2018-06-13 14:31 | ECG ---
Date Performed: 06/12/2018 Time Performed: 13:37:02 PTAGE: 73 years EKG: Sinus rhythm NORMAL ECG NO PREVIOUS TRACING DOCTOR: Georgiana Potts Interpretating Date/Time 06/13/2018 14:30:05
[2018-06-13 16:02] LABS: Hemoglobin A1c 6.4 % (4.3-6.0)
--- NOTE | 2018-06-13 16:35 | P.DS ---
DS: Providers Date of admission: 06/12/18 17:05 Primary care physician: Jon Banks MD Consults: 06/12/18 16:58 Consult to Neurology Routine Consulting Provider: Jay Burton Reason for Consultation: Syncope vs seizure. Notified:: Service Spoke with:: Marifer Date Notified:: 06/12/18 Time Notified:: 17:23 Ordering Provider: DYLON 06/13/18 08:15 HUB Only Consult Order Routine Consulting Provider: Rc Tatum 06/13/18 08:58 Consult to Cardiology Routine Consulting Provider: Luis Enrique Rogers Does the patient have a Evaporator Supervisor who follows them?: No Preferred Needle Loom Tender:: Mat Coyle Reason for Consultation: Recurrent syncopal episode Notified:: Office Spoke with:: TYRONE Date Notified:: 06/13/18 Time Notified:: 09:14 Ordering Provider: CLINTON Brief History from admission: This is a 73-year-old [place] male patient without any significant past medical history who presents to [facility] ED with complaints of possible syncopal versus seizure episode. History is obtained from discussion with the patient and who is at the bedside as well as review of electronic medical record. 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 He then walked out to the porch and sat down and became unresponsive as witnessed by the . Patients states that his eyes rolled towards the back of his head and he would not respond to her. She denies any involuntary shaking. She says that he began to breathe very hard and became diaphoretic. She says that she blew air into his mouth and after a few minutes he regained consciousness. Patient states that prior to the episode he did not have any headache, chest pain, palpitations, weakness, numbness, tingling or chest pain. Patient did not bite his tongue but he was incontinent of urine. Patient denies any fall. He denies any recent head injury. says that she did not witness any facial droop or slurred speech. EMS was called and patient was found to have normal blood pressure and heart rate. Approximately 10 minutes after EMS left, patient had a similar episode that lasted a few minutes and prompted them to come into the hospital. Patient denies any history of seizure disorder. He denies any cardiac history. He does not take any prescribed medications. He does report complaints of chronic pain in the left heel and right medial lower leg that has been ongoing for quite some time. He denies any aggravating or alleviating factors in regards to the pain in the left heel but does state that ambulation improves pain in the right leg. He takes Advil 2-3 times per week with mild improvement. Patient denies any recent illness or sick contacts. At present, he does not have any medical complaints. He denies any fever or chills. He denies any headache, vision changes, blurry vision, numbness/tingling, weakness , chest pain, shortness of breath, nausea, vomiting or abdominal pain. He denies any urinary difficulties, hematuria or dysuria. He denies any diarrhea or constipation. He says he feels like he is at his baseline. In the ED, head CT shows no acute intracranial process. Laboratory studies are overall unremarkable. Initial troponin is less than 0.02. DS: Diagnosis Discharge Diagnosis (1) Syncope: Status: Acute DS: Summary 73-year-old male who presented yesterday following 2 syncopal episodes that occurred while he was working prior to lunch. 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 After the first syncopal episode his gave him bread. 911 was called but he refused to go to the hospital, he was told that his blood pressure was a systolic of 97. After the second episode occurred within 1 hour, he accepted the decision to go for further workup in the ER. He has undergone a syncopal episode here, all imaging and ultrasound studies have been negative for any suspicious findings. She underwent an EEG but those results have not returned after 8 hours. On further questioning he has vivid memory before and immediately after both events. This finding makes typical seizure activity unlikely. Patient would like to go home, he has family that can drive him. I explained to him that I am willing to send him home since this is not likely seizure activity. I will be calling him with the EEG results and up until that point he is not permitted to drive. He is happy to be going home and will arrange follow-up with his primary care provider. Most likely etiology was either hypertension or hype hypoglycemia. Time Spent with Patient Total time spent providing and/or coordinating discharge services: Less than 30 minutes Quality: VTE Deep Vein Thrombosis/Pulmonary Embolism Present on Admission: No Results Labs on day of discharge: Labs from last 24 hours 06/13/18 06/13/18 06/12/18 09:33 09:33 23:03 ESR 20 Hemoglobin A1c Troponin I Less than 0.02 L C-Reactive Protein 0.44 H Triglycerides 183 H Cholesterol 214 H LDL Cholesterol, Calc 139 H HDL Cholesterol 38.1 L Cholesterol/HDL Ratio 5.61 Vitamin B12 193 TSH 1.580 06/12/18 15:30 ESR Hemoglobin A1c Pending Troponin I C-Reactive Protein Triglycerides Cholesterol LDL Cholesterol, Calc HDL Cholesterol Cholesterol/HDL Ratio Vitamin B12 TSH Impressions ITS Impressions Carotid Doppler Study 06/12/18 00:00 CONCLUSION: No evidence of flow-limiting carotid stenosis. Chest X-Ray 06/12/18 14:27 CONCLUSION: 1. No acute cardiopulmonary disease. Head CT 06/12/18 14:27 CONCLUSION: 1. No acute intracranial abnormality. . Tibia/Fibula X-Ray 06/12/18 14:27 CONCLUSION: No acute abnormality. Advanced osteoarthritis of the knee. Venous Doppler Study 06/12/18 14:27 CONCLUSION: 1. No DVT. 2. Varicosities in the area of palpable concern. Head MRI 06/13/18 00:00 CONCLUSION: 1. Single small area of restricted diffusion seen along the floor of the right frontal lobe. However, the FLAIR images at this level are normal. Therefore, this may be an artifact versus a small infarct. 2. Otherwise, unremarkable examination for patient's age. Head MRA 06/13/18 08:57 CONCLUSION: 1. Unremarkable MRA of the brain. Discharge Plan Discharge Disposition Patient Disposition: 01 Discharge Home Discharge Condition Condition: Good Discharge Order Discharge Orders: Discharge Order (Routine); Ordered 06/13/18 Ordered By: Ruperto Velasco Cardiology Clear for Discharge (Routine); Ordered 06/13/18 Ordered By: Luis Enrique Rogers Discharge Details Anticipated Discharge Date: 06/13/18 Physicians Team Primary Care Provider: Jon Banks Attending Provider: Ruperto Velasco Other Providers: Jay Burton ; Rc,Rc ; Luis Enrique Rogers Rxs /Orders / Referrals /Forms Prescriptions: No Action No Known Home Medications RF: 0 Referrals: Jon Banks MD [Primary Care Provider] - See Instructions Discharge Interventions Interventions: Discharge Planning - Case Management Last Done: 06/13/18 11:35 Status ED Status: Left Department
[2018-06-13 16:38] VITALS: BP 154/76; PULSE 58; TEMP 98.7
--- NOTE | 2018-06-13 17:10 | ECHRPT ---
EXAM DATE: 06/13/2018 12:20 PM EST AGE/SEX: 73 years / Male INDICATIONS: SYNCOPE, BILATERAL LE PAIN CLINICAL DATA: This is the patient's initial encounter. Patient reports that signs and symptoms have been present for 2 weeks and indicates a pain score of 10/10. MEDICAL/SURGICAL HISTORY: None. N/A None. N/A COMPARISON: No prior exams available for comparison. TECHNIQUE: Four-cuff ankle and brachial pressures were obtained. Pulse cuff waveform tracings of the ankles were recorded, and ankle-brachial indices were calculated. PRESSURES (mmHg): Brachial (arm) : RIGHT: 143, LEFT: IV SITE Ankle : RIGHT: 180, LEFT: 168 Toe : RIGHT: 128, LEFT: 142 JOSÉ : RIGHT: 1.26, LEFT: 1.17 FINDINGS: Pulsed-Cuff Waveform: There are good upstroke and a dicrotic downstroke of the tracings. Other: None. CONCLUSION: 1. Normal examination. Electronically signed by: Elmira Berry MD Board Certified Radiologist 06/13/2018 5:09 PM EST
--- NOTE | 2018-06-13 22:44 | MG ---
cc: Jay Burton MD EEG RECORD NUMBER: [id number] Well-formed alpha activity 7-9 Hz, 20-40 microvolts with a lot of fast frequency. Myogenic artifact occurring in the frontal channels. Good anterior posterior gradient. Reduced driving with photic stimulation. Attenuation generalized slowing with transition into drowsy state followed by stage I sleep, with a brief arousal. Single lead EKG showing sinus rhythm. INTERPRETATION: Normal awake sleep electroencephalogram. Clinical correlation. MD MYNOR Jones/matthew , 10:25 PM , 10:29 PM
== END 2018-06-13 17:12 | disposition home or self-care (01) ==
LOC: NEPC 13:17 → NEDA 13:17 → NEPHCDU 19:00
PROVIDERS: ADMIT Family Medicine; ATTEND Family Medicine
DX: M79.672 Pain in left foot; F17.210 Nicotine dependence, cigarettes, uncomplicated; M79.604 Pain in right leg; E16.2 Hypoglycemia, unspecified; M17.10 Unilateral primary osteoarthritis, unspecified knee; Z82.49 Family history of ischemic heart disease and other diseases of the circulatory system; G89.29 Other chronic pain; R32 Unspecified urinary incontinence; I10 Essential (primary) hypertension; R55 Syncope and collapse
CPT/HCPCS: 70450; 70544; 70551; 71010; 71045; 73590; 80053; 80061; 82550; 82552; 82607; 83036; 83735; 84443; 84484; 85025; 85610; 85651; 85652; 85730; 86140; 90761; 90774; 90775; 90784; 93005; 93306; 93880; 93922; 93971; 95819; 96361; 96374; 96375; 97163; 99285; C8952; G0378; G8987; G8988; J2270; J2405; J7030